=== PATIENT | female | born 1950 | race Asian ===

== ENCOUNTER 2019-08-18 20:42 | Emergency (ER) | payer OTHER, MEDICAID ==
[~2019-08-18] VITALS: Ht 160 cm; Wt 58.0 kg
[2019-08-18] MEDS ORDERED: SODIUM CHLORIDE FLUSH 10ML SYR IVF ONE (22:00)
[2019-08-18 22:23] LABS: BASOPHILS # (AUTO) 0.04 x10^3/uL (0-0.1); BASOPHILS % (AUTO) 0 % (0-1); EOSINOPHILS # (AUTO) 0.02 x10^3/uL (0-0.4); EOSINOPHILS % (AUTO) 0 % (1-7); LYMPHOCYTES # (AUTO) 1.37 x10^3/uL (1-3.4); LYMPHOCYTES % (AUTO) 15 % (22-44); MD NO; MEAN CORPUSCULAR HGB CONC 32.6 g/dL (32.4-35.8); MEAN CORPUSCULAR VOLUME 82.6 fL (80-100); MEAN PLATELET VOLUME 8.5 fL (7.4-10.4); MONOCYTES # (AUTO) 0.23 x10^3/uL (0.2-0.8); MONOCYTES % (AUTO) 3 % (2-9); NEUTROPHILS # (AUTO) 7.51 x10^3/uL (1.8-6.8); NEUTROPHILS % (AUTO) 82 % (42-75); PLATELET COUNT 170 x10^3/uL (130-400); RED BLOOD COUNT 4.96 x10^6/uL (3.82-5.3); RED CELL DISTRIBUTION WIDTH 13.4 % (9.6-15.2)
[2019-08-18] MEDS ORDERED: ONDANSETRON 2MG/ML, 2ML IVPush ONE (22:30)
[2019-08-18 22:34] LABS: ALANINE AMINOTRANSFERASE 24 U/L (12-78); ALBUMIN 3.7 g/dL (3.4-5.0); ANION GAP 4 mmol/L (5-15); CALCIUM 8.7 mg/dL (8.5-10.1); CHLORIDE 104 mmol/L (98-107); CREATININE 0.93 mg/dL (0.55-1.02)
[2019-08-18 22:36] LABS: ALKALINE PHOSPHATASE 69 U/L (45-117); BILIRUBIN,TOTAL 0.7 mg/dL (0.2-1.0); TOTAL PROTEIN 7.6 g/dL (6.4-8.2)
[2019-08-18] MEDS ORDERED: MORPHINE SULFATE 4 MG/ML, 1ML ONE (22:52)
[2019-08-18] MEDS ORDERED: ONDANSETRON 2MG/ML, 2ML ONE (22:52)
[2019-08-18] MEDS: MORPHINE SULFATE 4 MG/ML, 1ML IVPush PRN (22:55)
[2019-08-18 22:57] LABS: TROPONIN I < 0.015 ng/mL (0.000-0.045)
[2019-08-18 23:22] LABS: MICROSCOPIC AUTO
[2019-08-18] MEDS ORDERED: OMNIPAQUE 350 MG/ML, 100ML BOTTLE ONE (23:28)
[2019-08-18 23:43] LABS: CULTURE INDICATED? NO
[2019-08-19] MEDS ORDERED: MORPHINE SULFATE 4 MG/ML, 1ML ONE (00:29)
[2019-08-19] MEDS: MORPHINE SULFATE 4 MG/ML, 1ML IVPush PRN (00:33)
[2019-08-19 01:02] VITALS: BP 140/70
== END 2019-08-19 01:04 | disposition home or self-care (01) ==
LOC: ED 23:17
DX: K29.00 Acute gastritis without bleeding (principal); I10 Essential (primary) hypertension; K21.9 Gastro-esophageal reflux disease without esophagitis; Z87.891 Personal history of nicotine dependence
CPT/HCPCS: 36415; 74177; 80053; 81001; 83690; 84484; 85025; 93005; 96374; 96375; 96376; 99284; J2270; J2405; Q9967